=== PATIENT | female | born 1995 | race Caucasian/White ===

== ENCOUNTER 2025-10-08 22:39 | Emergency (ER) | payer BC ==
[~2025-10-08] VITALS: Ht 162.5 cm; Wt 59.0 kg
[2025-10-08] MEDS ORDERED: Ondansetron Hydrochloride 4 MG TAB SL ONE (22:55)
[2025-10-08] MEDS ORDERED: Acetaminophen/Hydrocodone ES 7.5/325 tablet PO ONE (22:55)
[2025-10-08] MEDS ORDERED: SILVER SULFADIAZINE 25 GM TUBE T ONE (22:55)
[2025-10-08] MEDS ORDERED: Tdap Vaccine 0.5 ML SYR (Adult Vaccine) IM ONE (22:55)
[2025-10-08] MEDS ORDERED: HYDROCODONE-AC1 EAC1 PO (23:13)
[2025-10-08] MEDS ORDERED: SILVADENE20 GM T (23:13)
[2025-10-08 23:21] LABS: URINE AMPHETAMINES Negative (1000ng/ml); URINE BARBITURATES Negative (200ng/ml); URINE BENZODIAZEPINES Negative (200ng/ml); URINE CANNABINOIDS (THC) Positive (50ng/ml); URINE COCAINE Negative (300ng/ml); URINE METHADONE Negative (300ng/ml); URINE OPIATES Negative (300ng/ml); URINE PHENCYCLIDINE Negative (25ng/ml)
== END 2025-10-09 00:02 | disposition home or self-care (01) ==
LOC: ED 22:39
PROVIDERS: Internal Medicine
DX: T23.201A Burn of second degree of right hand, unspecified site, initial encounter (principal); T31.0 Burns involving less than 10% of body surface; Z79.899 Other long term (current) drug therapy; X08.8XXA Exposure to other specified smoke, fire and flames, initial encounter; Y93.89 Activity, other specified; Y92.89 Other specified places as the place of occurrence of the external cause; Y99.8 Other external cause status